=== PATIENT | female | born 1985 | race American Indian/Alaskan Native ===

== ENCOUNTER 2020-07-11 12:38 | Day surgery (SDC) | payer SELFPAY ==
--- NOTE | 2020-07-11 10:38 | History and Physical Report ---
History of Present Illness Date of examination: 07/11/20 History of present illness: History of Present Illness Date of examination: 06/12/20 Chief complaint: Menometrorrhagia and possible endometrial mass History of present illness: Past History : 0 PHARMACIST IN CHARGE History Operations: Negative Past Surgical History Abnormal PAP: positive Infection History HIV Risk Eval: no Hx of STD: chlamydia Active Medications (reviewed today): CARLOTA ALLERGY TABLET (FEXOFENADINE HCL TABS) MULTIVITAMINS ORAL CAPSULE (MULTIPLE VITAMIN) NEXPLANON 68 MG SUBCUTANEOUS IMPLANT (ETONOGESTREL) Current Allergies (reviewed today): No known allergies Past Medical History: Allergies-seasonal Past Surgical History: Reviewed history from 02/23/2018 and no changes required: Negative Past Surgical History Family History Summary: Reviewed history Last on 05/17/2020 and no changes required:06/18/2020 Other Family Member - Has No Family History of Uterine Cancer - Entered On: 04/12/2018 Other Family Member - Has No Family History of Small Bowel Cancer - Entered On: 04/12/2018 Other Family Member - Has No Family History of Stomach Cancer - Entered On: 04/12/2018 Other Family Member - Has No Family History of Pancreatic Cancer - Entered On: 04/12/2018 Other Family Member - Has No Family History of Ovarvian Cancer - Entered On: 04/12/2018 Other Family Member - Has No Family History of Kidney/Urinary Tract Cancer - Entered On: 04/12/2018 Other Family Member - Has No Family History of Spontaneous DVT-PE - Entered On: 04/12/2018 Other Family Member - Has No Family History of Colon Cancer - Entered On: 04/12/2018 Other Family Member - Has No Family History of Brain Cancer - Entered On: 04/12/2018 Other Family Member - Has No Family History of Breast Cancer - Entered On: 04/12/2018 Other Family Member - Has No Family History of Biliary Tract Cancer - Entered On: 04/12/2018 General Comments - FH: Mother Acute myelogenous leukemia Social History: Reviewed history from 05/17/2020 and no changes required: Patient is single Smoking History: Patient has never smoked. Risk Factors: Smoked Tobacco Use: Never smoker Smokeless Tobacco Use: Never Passive smoke exposure: no Drug use: no HIV high-risk behavior: no Alcohol use: yes Exercise: yes Times per week: 2 Seatbelt use: 100 % Previous Tobacco Use: Signed On - 05/17/2020 Smoked Tobacco Use: Never smoker Smokeless Tobacco Use: Never Passive smoke exposure: no Drug use: no HIV high-risk behavior: no Previous Alcohol Use: Signed On 05/17/2020 Alcohol use: yes Type: occ Drinks per day: social Exercise: yes Times per week: 2 Type of Exercise: eliptical Seatbelt use: 100 % PAP Smear History: Date of Last PAP Smear: 03/10/2020 Physical Exam Appearance: well developed, well nourished, no acute distress Other Exams Lungs: no rales, rhonchi, or wheezes Heart: S1, S2, no murmur, rub, or gallop Genitourinary Exam Uterus: deferred for EUA Impression & Recommendations: Problem # 1: Endometrial mass (ICD-236.0) (FHC31-N65.0) Consent reviewed and signed . Possible laparoscopy or laparotomy explained to patient. The risks and alternatives for this surgery were reviewed with the patient. She was informed of risks that inclund but not limited to, possible bleeding, infection, injury to bowel, bladder, ureters or other adjacent organs, uterine perforation and development of adhesions. The patient was instructed/informed the following: Nothing to eat or drink after midnight the evening prior to surgery. The usual discomforts associated with this procedure were detailed. Proper use of pain medicines was reviewed. Patient was given ample opportunity to have all her questions answered before signing informed consent. Patient desires to proceed with Hysteoscopy with cervical dilation and uterine curettage and excision of endometrial mass Problem # 2: Excessive and frequent menstruation with irregular cycle (ICD- 626.6) (MPI67-Z32.1) She aware irregular blood may may be caused by Nexplanon The following medications were removed from the medication list: Vitamin D (cholecalciferol) 25 Mcg (1000 Ut) Oral Capsule (Cholecalciferol) Her updated medication list for this problem includes: Multivitamins Oral Capsule (Multiple vitamin) Nexplanon 68 Mg Subcutaneous Implant (Etonogestrel) Medications Added to Medication List This Visit: 1) Carlota Allergy Tablet (Fexofenadine hcl tabs) ] Medications and Allergies Allergies Allergy/AdvReac Type Severity Reaction Status Date / Time No Known Allergies Allergy Unverified 06/15/20 09:46 Home Medications Medication Instructions Recorded Confirmed Last Taken Type Multivit-Min/Iron/Folic Acid/K 1 tab PO DAILY 05/16/20 06/15/20 Unknown History [Multi-Day Plus Minerals Tablet] Assessment and Plan - Patient Problems (1) Excessive and frequent menstruation with irregular cycle Status: Acute (2) Neoplasm of uncertain behavior of uterus Status: Acute Medications and Allergies Allergies Allergy/AdvReac Type Severity Reaction Status Date / Time No Known Allergies Allergy Unverified 07/10/20 17:30 Home Medications Medication Instructions Recorded Confirmed Last Taken Type Multivit-Min/Iron/Folic Acid/K 1 tab PO DAILY 05/16/20 07/10/20 Unknown History [Multi-Day Plus Minerals Tablet]
[~2020-07-11 12:38] MED LIST: LACTATED RINGERS 1,000 ML IV SCH
[2020-07-11] MEDS ORDERED: ONDANSETRON 4 MG/2 ML INJ IV PRN (13:04)
[2020-07-11] MEDS ORDERED: HYDROmorphone 1 MG/1 ML INJ IV PRN ×2 (13:04)
--- NOTE | 2020-07-11 13:05 | Anesthesia Day of Surgery ---
Anesthesia Day of Surgery - Day of Surgery Patient Examined: Yes Patient H&P Reviewed: Yes Patient is NPO: Yes
--- NOTE | 2020-07-11 13:06 | Anesthesia Consultation ---
Anesthesia Consult and Med Hx Date of service: 07/11/20 - Airway Anesthetic Teeth Evaluation: Good ROM Head & Neck: Adequate Mental/Hyoid Distance: Adequate Mallampati Class: Class I Intubation Access Assessment: Good - Pre-Operative Health Status ASA Pre-Surgery Classification: ASA2 Proposed Anesthetic Plan: General - Pulmonary Hx Smoking: No - Cardiovascular System Hx Hypertension: No - Central Nervous System Hx Psychiatric Problems: No - Gastrointestinal Hx Gastroesophageal Reflux Disease: No - Endocrine Hx Renal Disease: No Hx Non-Insulin Dependent Diabetes: No Hx Thyroid Disease: No - Hematic Hx Sickle Cell Disease: No - Other Systems Hx Cancer: No Hx Obesity: Yes
[2020-07-11] MEDS ORDERED: ONDANSETRON 4 MG/2 ML INJ ONE (13:47)
[2020-07-11] MEDS ORDERED: LIDOCAINE MPF (2%) 20 MG/1 ML VIAL 5 ML ONE (13:47)
[2020-07-11] MEDS ORDERED: fentaNYL 100 MCG/2 ML INJ ONE (13:48)
[2020-07-11] MEDS ORDERED: propofoL 200 MG/20 ML VIAL IV ONE (13:48)
[2020-07-11] MEDS ORDERED: MIDAZOLAM 2 MG/2 ML INJ IV NR (14:00)
[2020-07-11] MEDS ORDERED: KETOROLAC 30 MG/1 ML INJ ONE (14:18)
[2020-07-11] MEDS ORDERED: dexAMETHasone 20 MG/5 ML VIAL ONE (14:19)
--- NOTE | 2020-07-11 14:52 | Operative Report ---
Operative Report Operative Report: Date: 07/11/2020 PREOPERATIVE DIAGNOSES: (1) Excessive and frequent menstruation with irregular cycle Status: Acute (2) Neoplasm of uncertain behavior of uterus Status: Acute POSTOPERATIVE DIAGNOSES: (1) Excessive and frequent menstruation with irregular cycle PROCEDURE PERFORMED: 1. Hysteroscopy. 2. Dilation and curettage (D&C) ANESTHESIA: General ESTIMATED BLOOD LOSS: Less than minimal cc. INDICATIONS: This is a 35-year-old -Citizen Of [place] female that presents menorrhagia. PROCEDURE: The patient was seen in the preoperative suite. Expected procedure and postoperative course discussed with her. She was taken to the operative suite where general anesthesia was performed. She was placed in a dorsal lithotomy position. A bimanual exam was done, the uterus was found to be 8-10. She was prepped and draped in the normal sterile fashion. Timeout was performed. Her bladder was drained with the red Crockett catheter which produced approximately 50 cc of clear yellow urine. The cervix and vagina were grossly normal with no obvious masses or deformities. A bivalve operative speculum was placed in the vagina and the anterior lip of the cervix was grasped with the single-tooth tenaculum. The uterus was sounded to ~10 cm. The cervix was progressively dilated to allow the diagnostic hysteroscope. Under direct visualization, the ostia were within normal limits. The endometrial lining appeared normal, there was no obvious evidence of malignancy. The hysteroscope was removed and a small sharp curette was placed intrauterine very carefully using anterior wall for guidance. En dometrial curettings were obtained. The endometrial sampling was placed on Telfa pad and sent to Pathology for evaluation, permanent. The hysteroscope was introduced again, no evidence of perforation was noted. At this point procedure was ended. The single-tooth tenaculum and speculum were removed. The cervix was found to be hemostatic. Counts were correct. Patient was taken to the PACU stable. Distention fluid: Normal saline Deficit: 150 mL
[2020-07-11] MEDS ORDERED: SODIUM CHLORIDE 0.9% IRRIG SOLN 2000 ML IR ONE (14:57)
--- NOTE | 2020-07-11 14:59 | Discharge Summary ---
Providers - Providers Date of discharge: 07/11/20 Attending physician: CLAU BRAROW Primary care physician: TRENT HWANG Hospitalization Condition: Good Procedures: Hysteroscopy with cervical dilation and uterine curettage Hospital course: No complications Disposition: [id number] TO HOME OR SELFCARE Final Discharge Diagnosis (Prints w/discharge instructions): Status post diagnostic hysteroscopy with cervical dilation and uterine curettage - Discharge Diagnoses (1) Excessive and frequent menstruation with irregular cycle Status: Acute Core Measure Documentation - Palliative Care Palliative Care/ Comfort Measures: Not Applicable - Core Measures Any of the following diagnoses?: none Exam - Constitutional Vitals: Temp Pulse Resp BP Pulse Ox 98.6 F 75 14 143/80 98 07/11/20 13:05 07/11/20 13:05 07/11/20 13:05 07/11/20 13:05 07/11/20 13:05 General appearance: Present: no acute distress - Respiratory Respiratory effort: normal - Cardiovascular Rhythm: regular - Psychiatric Psychiatric: appropriate mood/affect, intact judgment & insight, memory intact, cooperative Plan Activity: other (No sex. No driving for 24 hours. Drink 100 ounces of water daily.) Weight Bearing Status: Full Weight Bearing Diet: regular Special Instructions: no heavy lifting (Greater than 25 pound) Follow up with: TRENT HWANG MD [Primary Care Provider] - 7 Days CLAU BARROW MD [Staff Physician] - (As scheduled) Prescriptions: Ibuprofen [Motrin 800 MG tab] 800 mg PO Q8HR PRN #30 tablet PRN Reason: pain oxyCODONE /ACETAMINOPHEN [Percocet 5/325] 1 tab PO Q6HR PRN #7 tablet PRN Reason: Pain
--- NOTE | 2020-07-11 15:13 | Post Anesthesia Evaluation ---
- Post Anesthesia Evaluation Patient Participated: Yes Airway Patent: Yes Stable Respiratory Function: Yes Nausea/Vomiting: No Temp > 96.8F: Yes Pain Manageable: Yes Adequeate Hydration: Yes Anesthesia Complications: No Block Receding Appropriately: Not Applicable Patient on Ventilator: No
[2020-07-11 17:18] VITALS: BP 128/62
== END 2020-07-11 12:39 | disposition home or self-care (01) ==
LOC: OR 12:38
PROVIDERS: ATTEND Obstetrics & Gynecology
DX: N92.1 Excessive and frequent menstruation with irregular cycle (principal); D39.0 Neoplasm of uncertain behavior of uterus; E66.9 Obesity, unspecified; Z98.890 Other specified postprocedural states; Z79.899 Other long term (current) drug therapy; Z68.36 Body mass index [BMI] 36.0-36.9, adult
CPT/HCPCS: 58558; 81025; 88305; A4217; J1100; J1885; J2250; J2405; J2704; J3010; J7120